=== PATIENT | male | born 1985 | race Caucasian/White ===

== ENCOUNTER 2020-09-30 21:43 | Emergency (ER) | payer BC, OTHER ==
[~2020-09-30] VITALS: Ht 167.6 cm; Wt 103.4 kg
[2020-09-30] MEDS ORDERED: CefTRIAXone 1000mg IM Kit (w/lidocaine diluent) IM ONE (22:30)
--- NOTE | 2020-09-30 22:33 | NUR ---
VASC CALLED BACK AT [address]
[2020-09-30] MEDS ORDERED: HYDROcodone/acetaminophen 5mg/325mg tablet PO ONE (22:50)
[2020-09-30 23:17] LABS: BASOPHILS # (AUTO) 0.1 X10'3 (0-0.2); BASOPHILS % (AUTO) 0.9 % (0-1); EOSINOPHILS # (AUTO) 0.3 X10'3 (0-0.9); EOSINOPHILS % (AUTO) 2.5 % (0-6); HEMATOCRIT 42.4 % (42.0-52.0); HEMOGLOBIN 14.5 g/dl (14.0-17.9); LYMPHOCYTES # (AUTO) 1.9 X10'3 (1.1-4.8); LYMPHOCYTES % (AUTO) 17.1 % (21-51); MEAN CORPUSCULAR HEMOGLOBIN 30.2 PG (27.0-31.0); MEAN CORPUSCULAR HGB CONC 34.2 g/dL (33.0-36.5); MEAN CORPUSCULAR VOLUME 88.5 FL (78-98); MEAN PLATELET VOLUME 8.5 FL (7.4-10.4); MONOCYTES # (AUTO) 0.9 X10'3 (0-0.9); MONOCYTES % (AUTO) 7.9 % (2-12); NEUTROPHILS # (AUTO) 8.1 X10'3 (1.8-7.7); NEUTROPHILS % (AUTO) 71.6 % (42-75); PLATELET COUNT 254 X10'3 (140-440); RED BLOOD COUNT 4.79 X10'6 (4.70-6.10); RED CELL DISTRIBUTION WIDTH 13.6 % (11.5-14.5); WHITE BLOOD COUNT 11.3 X10'3 (4.5-11.0)
[2020-09-30 23:19] LABS: ALANINE AMINOTRANSFERASE 33 U/L (12-78); ALBUMIN 3.6 G/DL (3.4-5.0); ALBUMIN/GLOBULIN RATIO 1.1 (1.1-1.5); ALKALINE PHOSPHATASE 93 IU/L (46-116); ANION GAP 7 (8-16); ASPARTATE AMINO TRANSFERASE 14 U/L (10-37); BILIRUBIN,TOTAL 0.2 MG/DL (0.1-1.0); BLOOD UREA NITROGEN 19 MG/DL (7-18); BUN/CREATININE RATIO 15.6 (5.4-32.0); CALCIUM 8.6 MG/DL (8.5-10.1); CHLORIDE 107 MMOL/L (99-107); CREATININE 1.22 MG/DL (0.60-1.10); GLUCOSE 123 MG/DL (70-104); POTASSIUM 3.9 MMOL/L (3.5-5.1); SODIUM 141 MMOL/L (135-145); TOTAL CARBON DIOXIDE 26.7 MMOL/L (24-32); eGFR 67 ML/MIN
[2020-09-30] MEDS ORDERED: HYDR-3965 PO (23:48)
[2020-09-30] MEDS ORDERED: RIVA15TA PO (23:48)
[2020-09-30] MEDS ORDERED: CEPH500C5 PO (23:48)
[2020-09-30] MEDS ORDERED: enoxaparin 100mg/ml syringe SUBCUT ONE (23:55)
[2020-10-01 00:09] VITALS: BP 148/72
== END 2020-10-01 00:11 | disposition home or self-care (01) ==
LOC: ER 21:43
DX: I82.431 Acute embolism and thrombosis of right popliteal vein (principal); L03.115 Cellulitis of right lower limb; S81.011D Laceration without foreign body, right knee, subsequent encounter; Z79.2 Long term (current) use of antibiotics; Z79.899 Other long term (current) drug therapy; X58.XXXD Exposure to other specified factors, subsequent encounter
CPT/HCPCS: 36415; 80053; 84145; 85025; 93971; 96372; 99284; J0696; J1650

== ENCOUNTER 2020-10-30 21:36 | Emergency (ER) | payer OTHER ==
[~2020-10-30] VITALS: Ht 167.6 cm; Wt 102.3 kg
[~2020-10-30 21:36] MED LIST: RIVA15TA PO
[2020-10-30 22:49] VITALS: BP 146/76
--- NOTE | 2020-10-30 23:11 | NUR ---
VAS at bedside doing exam
[2020-10-30] MEDS ORDERED: HYDR-3965 PO (23:25)
== END 2020-10-31 01:07 | disposition home or self-care (01) ==
LOC: ER 21:36
DX: I80.02 Phlebitis and thrombophlebitis of superficial vessels of left lower extremity (principal); M79.652 Pain in left thigh; R06.02 Shortness of breath; Z86.718 Personal history of other venous thrombosis and embolism; Z79.899 Other long term (current) drug therapy
CPT/HCPCS: 93971; 99284

== ENCOUNTER 2020-12-08 01:48 | Observation (INO) | payer OTHER ==
[~2020-12-08] VITALS: Ht 167.6 cm; Wt 104.5 kg
[2020-12-08 02:34] LABS: BASOPHILS # (AUTO) 0.2 X10'3 (0-0.2); BASOPHILS % (AUTO) 1.4 % (0-1); EOSINOPHILS # (AUTO) 0.6 X10'3 (0-0.9); HEMOGLOBIN 15.3 g/dl (14.0-17.9); LYMPHOCYTES # (AUTO) 3.2 X10'3 (1.1-4.8); LYMPHOCYTES % (AUTO) 28.8 % (21-51); MEAN CORPUSCULAR HEMOGLOBIN 29.6 PG (27.0-31.0); MEAN CORPUSCULAR HGB CONC 34.9 g/dL (33.0-36.5); MEAN CORPUSCULAR VOLUME 84.7 FL (78-98); MEAN PLATELET VOLUME 8.3 FL (7.4-10.4); MONOCYTES % (AUTO) 9.3 % (2-12); NEUTROPHILS # (AUTO) 6.2 X10'3 (1.8-7.7); NEUTROPHILS % (AUTO) 55.5 % (42-75); PLATELET COUNT 311 X10'3 (140-440); RED BLOOD COUNT 5.19 X10'6 (4.70-6.10); RED CELL DISTRIBUTION WIDTH 14.1 % (11.5-14.5); WHITE BLOOD COUNT 11.1 X10'3 (4.5-11.0)
[2020-12-08 02:36] LABS: ALANINE AMINOTRANSFERASE 33 U/L (12-78); ALBUMIN 4.2 G/DL (3.4-5.0); ALBUMIN/GLOBULIN RATIO 1.2 (1.1-1.5); ALKALINE PHOSPHATASE 90 IU/L (46-116); ANION GAP 13 (8-16); ASPARTATE AMINO TRANSFERASE 15 U/L (10-37); BILIRUBIN,TOTAL 0.3 MG/DL (0.1-1.0); BLOOD UREA NITROGEN 22 MG/DL (7-18); BUN/CREATININE RATIO 20.8 (5.4-32.0); CHLORIDE 104 MMOL/L (99-107); CREATININE 1.06 MG/DL (0.60-1.10); GLUCOSE 98 MG/DL (70-104); POTASSIUM 3.2 MMOL/L (3.5-5.1); SODIUM 141 MMOL/L (135-145); TOTAL CARBON DIOXIDE 24.2 MMOL/L (24-32); TOTAL PROTEIN 7.6 G/DL (6.4-8.2); eGFR 79 ML/MIN
[2020-12-08] MEDS ORDERED: aspirin 325mg tablet, delayed-release (Ecotrin) PO ONE (03:20)
[2020-12-08] MEDS ORDERED: normal saline 1000ML IV soln IVB ONE (03:25)
[2020-12-08] MEDS ORDERED: iohexol 350MG/ML 100ml bottle IV ONE (03:27)
[2020-12-08] MEDS ORDERED: ondansetron/PF 4mg/2ml inj IV PRN (03:35)
[2020-12-08] MEDS ORDERED: magnesium hydroxide 30ml (MOM) UD suspension PO PRN (03:35)
[2020-12-08] MEDS ORDERED: acetaminophen 325mg tablet PO PRN ×2 (03:35)
[2020-12-08] MEDS ORDERED: mag hydrox/Alum hydrox/simeth 30ml oral suspension PO PRN (03:35)
[2020-12-08] MEDS ORDERED: HYDROcodone/acetaminophen 5mg/325mg tablet PO PRN (03:35)
[2020-12-08] MEDS ORDERED: morphine 2 MG/ML inj. syringe IV PRN ×2 (03:35)
[2020-12-08] MEDS ORDERED: enoxaparin 80mg/0.8ml syringe SUBCUT ONE (03:35)
[2020-12-08 04:11] LABS: C-REACTIVE PROTEIN 0.27 MG/DL (0.0-0.5)
[2020-12-08 04:48] LABS: PARTIAL THROMBOPLASTIN TIME 32 SECONDS (22-32)
[2020-12-08 04:51] LABS: D-DIMER < 0.19 MG/L FEU (0-0.50)
[2020-12-08] MEDS ORDERED: regadenoson 0.4mg/5ml syringe IV PRN ×2 (08:00→13:40)
[2020-12-08] MEDS: HYDROcodone/acetaminophen 10/325mg tab PO PRN ×3 (10:46→20:00)
[2020-12-08] MEDS ORDERED: RIVA20TA PO (11:51)
[2020-12-08] MEDS ORDERED: nitroGLYCERIN 0.4mg SUBLingual tab SL PRN (12:15)
[2020-12-08] MEDS ORDERED: metoprolol tartrate 1mg/ml inj IV PRN (12:15)
[2020-12-08] MEDS ORDERED: aminophylline 250mg/10ml inj. IV PRN (12:15)
[2020-12-08] MEDS ORDERED: regadenoson 0.4mg/5ml syringe IV ONE (12:15)
--- NOTE | 2020-12-08 12:44 | NUR ---
VASCULAR IN ROOM
--- NOTE | 2020-12-08 13:39 | NUR ---
JAREN SCAN ORDERED, WAS TOLD WILL DO JAREN SCAN IN AM, RE-TIMMED JAREN SCAN IN COMPUTER FOR TOMORROW.
--- NOTE | 2020-12-08 15:25 | NUR ---
echo at bedside
--- NOTE | 2020-12-08 16:30 | NUR ---
attempted to call report, rn not assigned yet. Will call back.
--- NOTE | 2020-12-08 16:50 | NUR ---
Report received from ED RNJuan C
[2020-12-08 18:00] VITALS: BP 161/91
--- NOTE | 2020-12-08 18:05 | NUR ---
Problems reprioritized. Patient report given, questions answered & plan of care reviewed with BREA Phipps.
[2020-12-08] MEDS ORDERED: potassium Cl 40MEQ/1/2NS 520ml 520 ML IV PRN (21:05)
[2020-12-08] MEDS ORDERED: potassium Cl 20 mEq SR tablet PO PRN ×2 (21:05)
[2020-12-08] MEDS ORDERED: magnesium Cl slow-release 64mg tablet PO PRN (21:05)
[2020-12-08] MEDS ORDERED: magnesium 4gm in 100ml NS 100 ML IV PRN (21:05)
[2020-12-08 22:00] VITALS: BP 139/91
[2020-12-09] VITALS (10 sets, daily range): BP systolic 125–148; BP diastolic 70–98
[2020-12-09 06:23] LABS: BASOPHILS # (AUTO) 0.1 X10'3 (0-0.2); BASOPHILS % (AUTO) 1.1 % (0-1); EOSINOPHILS # (AUTO) 0.6 X10'3 (0-0.9); EOSINOPHILS % (AUTO) 6.3 % (0-6); HEMATOCRIT 41.9 % (42.0-52.0); HEMOGLOBIN 14.6 g/dl (14.0-17.9); LYMPHOCYTES # (AUTO) 2.6 X10'3 (1.1-4.8); LYMPHOCYTES % (AUTO) 25.3 % (21-51); MEAN CORPUSCULAR HEMOGLOBIN 29.6 PG (27.0-31.0); MEAN CORPUSCULAR HGB CONC 34.9 g/dL (33.0-36.5); MEAN CORPUSCULAR VOLUME 84.8 FL (78-98); MEAN PLATELET VOLUME 8.2 FL (7.4-10.4); MONOCYTES # (AUTO) 0.9 X10'3 (0-0.9); MONOCYTES % (AUTO) 8.7 % (2-12); NEUTROPHILS % (AUTO) 58.6 % (42-75); PLATELET COUNT 268 X10'3 (140-440); RED BLOOD COUNT 4.95 X10'6 (4.70-6.10); WHITE BLOOD COUNT 10.2 X10'3 (4.5-11.0)
--- NOTE | 2020-12-09 06:30 | NUR ---
Patient in room PCU 3027. I have received report from Desire GUIDRY and had the opportunity to ask questions and assume patient care.
[2020-12-09 06:44] LABS: ALBUMIN 3.6 G/DL (3.4-5.0); ANION GAP 11 (8-16); BLOOD UREA NITROGEN 19 MG/DL (7-18); BUN/CREATININE RATIO 19.6 (5.4-32.0); CALCIUM 8.8 MG/DL (8.5-10.1); CHLORIDE 106 MMOL/L (99-107); CREATININE 0.97 MG/DL (0.60-1.10); GLUCOSE 100 MG/DL (70-104); POTASSIUM 3.7 MMOL/L (3.5-5.1); SODIUM 142 MMOL/L (135-145); TOTAL CARBON DIOXIDE 25.3 MMOL/L (24-32); eGFR 88 ML/MIN
--- NOTE | 2020-12-09 06:46 | NUR ---
Problems reprioritized. Patient report given, questions answered & plan of care reviewed with BREA Killian.
[2020-12-09] MEDS ORDERED: regadenoson 0.4mg/5ml syringe IV PRN (08:00)
[2020-12-09] MEDS ORDERED: K and/or MAG REPLACEMENT MC SCH (08:00)
[2020-12-09] MEDS: HYDROcodone/acetaminophen 10/325mg tab PO PRN ×2 (12:43→17:07)
[2020-12-09] MEDS ORDERED: rivaroxaban 20mg tablet PO SCH (17:00)
== END 2020-12-09 17:34 | disposition home or self-care (01) ==
LOC: ER 01:48 → ED HOLD 03:33 → PCU 3S 17:06
PROVIDERS: ADMIT Internal Medicine; ATTEND Family Medicine
DX: R07.89 Other chest pain (principal); M79.602 Pain in left arm; I82.403 Acute embolism and thrombosis of unspecified deep veins of lower extremity, bilateral; E87.6 Hypokalemia; I21.4 Non-ST elevation (NSTEMI) myocardial infarction; Z79.01 Long term (current) use of anticoagulants; Z79.899 Other long term (current) drug therapy
CPT/HCPCS: 36415; 71045; 71275; 78452; 80048; 80053; 83880; 84145; 84484; 85025; 85379; 85610; 85730; 86140; 87081; 93005; 93017; 93306; 93971; 96361; 96372; 96374; 99285; A9500; G0378; J2270; J2785; J7030; Q9967; J1650

== ENCOUNTER 2022-02-08 22:50 | Inpatient (IN) | payer OTHER ==
[~2022-02-08] VITALS: Ht 167.6 cm; Wt 102.0 kg
[~2022-02-08 22:50] MED LIST changes: -RIVA15TA PO; +RIVA20TA PO
--- NOTE | 2022-02-08 23:34 | NUR ---
Pt to room 11. open cellulitis to left lower leg. Pt states it started a week ago, has been on po antibiotics x 1 week. Bed in lowest position, wheels locked, family at bedside. Call fletcher in reach.
[2022-02-08] MEDS ORDERED: normal saline 1000ml 1,000 ML IV ONE (23:55)
[2022-02-09 00:35] LABS: ALANINE AMINOTRANSFERASE 55 U/L (12-78); ALBUMIN 3.8 G/DL (3.4-5.0); ALBUMIN/GLOBULIN RATIO 1.2 (1.1-1.5); ALKALINE PHOSPHATASE 67 IU/L (46-116); ANION GAP 17 (8-16); ASPARTATE AMINO TRANSFERASE 21 U/L (10-37); BILIRUBIN,TOTAL 0.2 MG/DL (0.1-1.0); BLOOD UREA NITROGEN 12 MG/DL (7-18); BUN/CREATININE RATIO 9.8 (5.4-32.0); CALCIUM 7.9 MG/DL (8.5-10.1); CHLORIDE 112 MMOL/L (99-107); CREATINE KINASE 131 U/L (39-308); CREATININE 1.23 MG/DL (0.60-1.10); GLUCOSE 68 MG/DL (70-104); POTASSIUM 3.7 MMOL/L (3.5-5.1); SODIUM 149 MMOL/L (135-145); TOTAL CARBON DIOXIDE 20.4 MMOL/L (24-32); TOTAL PROTEIN 7.1 G/DL (6.4-8.2); eGFR 66 ML/MIN
[2022-02-09] MEDS ORDERED: fentaNYL/PF 50MCG/1 ML 2ML syringe IV ONE (00:45)
[2022-02-09 00:49] LABS: BASOPHILS # (AUTO) 0.1 X10'3 (0-0.2); BASOPHILS % (AUTO) 0.7 % (0-1); EOSINOPHILS # (AUTO) 0.1 X10'3 (0-0.9); EOSINOPHILS % (AUTO) 1.9 % (0-6); HEMATOCRIT 43.9 % (42.0-52.0); LYMPHOCYTES # (AUTO) 0.5 X10'3 (1.1-4.8); LYMPHOCYTES % (AUTO) 7.5 % (21-51); MEAN CORPUSCULAR HEMOGLOBIN 29.4 PG (27.0-31.0); MEAN CORPUSCULAR HGB CONC 34.2 g/dL (33.0-36.5); MEAN PLATELET VOLUME 8.3 FL (7.4-10.4); MONOCYTES # (AUTO) 1.4 X10'3 (0-0.9); MONOCYTES % (AUTO) 19.9 % (2-12); NEUTROPHILS # (AUTO) 5.1 X10'3 (1.8-7.7); PLATELET COUNT 256 X10'3 (140-440); RED CELL DISTRIBUTION WIDTH 14.6 % (11.5-14.5); WHITE BLOOD COUNT 7.3 X10'3 (4.5-11.0)
[2022-02-09] MEDS ORDERED: ondansetron/PF 4mg/2ml inj IV ONE (01:10)
--- NOTE | 2022-02-09 01:18 | NUR ---
20G PIV started right a/c 2 attempts. Pt andrea well remained pink, family at bedside. Nasal swabs collected, labeled and walked to lab. Pt provided with warm blankets for comfort.
[2022-02-09 01:23] LABS: TOTAL CELLS COUNTED 100
[2022-02-09 01:24] LABS: PLATELET ESTIMATE NORMAL
[2022-02-09] MEDS ORDERED: epiNEPHrine 1 mg/ml inj IM STA (02:10)
--- NOTE | 2022-02-09 02:30 | NUR ---
Pt medicated as ordered, right deltoid. Pt andrea. well, remained pink, injection site c/d/i s complication. Family at bedside. PIV site c/d/i s complication.
--- NOTE | 2022-02-09 04:16 | NUR ---
No change in pt sx after epi IM given. Pt pink, alert, no acute distress. PIV site c/d/i s complication. UA collected, labeled and walked to lab. Family at bedside.
[2022-02-09] MEDS ORDERED: TRAM50TA2 PO (04:18)
[2022-02-09] MEDS ORDERED: SULF1TAB45 PO (04:18)
[2022-02-09] MEDS ORDERED: APIX2.5T PO (04:19)
[2022-02-09 04:32] LABS: CLARITY,URINE CLEAR (Clear); COLOR,URINE YELLOW (Yellow); GLUCOSE, URINE NEGATIVE (Neg); KETONES,URINE NEGATIVE (Neg); LEUKOCYTE ESTERASE ,URINE NEGATIVE (Neg); NITRITES, URINE NEGATIVE (Neg); OCCULT BLOOD,URINE TRACE-INTACT (Neg); PROTEIN,URINE NEGATIVE (Neg); UROBILINOGEN,URINE 0.2 E.U/dL (0.2-1.0)
[2022-02-09 04:33] LABS: UA COLLECTION TYPE CLN CATCH MIDSTREAM
[2022-02-09] MEDS ORDERED: ringers solution, lacted 1,000 ML IV ONE (04:45)
[2022-02-09 04:46] LABS: BACTERIA,URINE NONE SEEN /HPF (Neg); MUCUS STRANDS NONE SEEN /LPF (Neg); RBC,URINE 0-2 /HPF (0-2); SQUAMOUS EPITHELIAL CELL,UR NONE SEEN /LPF (FEW); WBC,URINE 0-4 /HPF (0-4)
[2022-02-09] MEDS ORDERED: morphine 4 MG/ML inj SYRINge IV ONE (05:25)
--- NOTE | 2022-02-09 05:54 | NUR ---
Pt pink, alert, no acute/resp distress. PIV site c/d/i s complication or adverse reaction. Pt supine, moves self PRN for comfort. Bed in lowest position, wheels locked, rail 2/2 up, call fletcher in reach. Handoff report to dayshift RN
[2022-02-09] MEDS ORDERED: cefTRIAXone 1g/NS 100ml IVPB 100 ML IV ONE (06:45)
[2022-02-09] MEDS ORDERED: naloxone 0.4 mg/ml inj IV PRN (07:00)
[2022-02-09] MEDS ORDERED: acetaminophen 325mg tablet PO PRN ×2 (07:00→18:40)
[2022-02-09] MEDS ORDERED: docusate sod 100mg capsule PO ONE (07:00)
[2022-02-09] MEDS: oxyCODONE IR 5mg (immed. release) tablet PO PRN ×4 (07:35→20:19)
[2022-02-09] MEDS ORDERED: heparin 10,000 units/1 ML INJ IV PRN (09:35)
[2022-02-09] MEDS ORDERED: heparin 25,000 UNIT/250ml bag 250 ML IV SCH (09:35)
--- NOTE | 2022-02-09 12:30 | NUR ---
Patient feels hot and blotchy, temp checked 99F. MD assessed patient and aware. per MD okay to eat.
--- NOTE | 2022-02-09 15:34 | NUR ---
RELIEVING RN FOR BREAK, PT IS RESTING QUIETLY ON BED, GAVE PT SNACK TO EAT, IKE WELL, NO N/V
--- NOTE | 2022-02-09 16:10 | NUR ---
HEPARIN INFUSION STOPPED BY VERBAL ORDER OF DR. WALLIS.
[2022-02-09] MEDS ORDERED: iohexol 300mg/ml 100ml inj. ONE (16:32)
[2022-02-09] MEDS ORDERED: piperacillin/tazo 3.375gm/50ml 50 ML IV ONE (17:00)
[2022-02-09] MEDS ORDERED: vancomycin/NS 1 GM ADD-VANTAGE 250 ML IV ONE (17:00)
[2022-02-09] MEDS: morphine 4 MG/ML inj SYRINge IV PRN ×2 (17:24→18:56)
[2022-02-09] MEDS ORDERED: mag hydrox/Alum hydrox/simeth 30ml oral suspension PO PRN (18:40)
[2022-02-09] MEDS ORDERED: magnesium hydroxide 30ml (MOM) UD suspension PO PRN (18:40)
[2022-02-09] MEDS ORDERED: ondansetron/PF 4mg/2ml inj IV PRN (18:40)
[2022-02-09] MEDS: normal saline 1000ml 1,000 ML IV SCH ×2 (18:55→20:45)
[2022-02-09] MEDS: docusate sod 100mg capsule PO SCH (20:18)
[2022-02-09] MEDS: clindamycin 600mg/D5W 50ml 50 ML IV SCH (20:45)
[2022-02-09 21:00] VITALS: BP 135/76
--- NOTE | 2022-02-09 21:42 | NUR ---
Pt admitted to floor via ED, ambulatory in room. VSS. reddness/warmth noted to left lower extremity and right/mid lower abd. generalized reddness also noted to right flank area and neck, pt states improvement since ED. MD Rizvi paged to verify hep gtt d/c. okay to give oral eliquis. pt denies any needs at this time. no acute distress noted.
[2022-02-09] MEDS: apixaban 2.5mg tablet PO SCH (21:49)
[2022-02-09 22:00] VITALS: BP 135/72
[2022-02-09] MEDS: ceFAZolin/D5W- 1GM premix 50 ML IV SCH (23:32)
[2022-02-10] MEDS: oxyCODONE IR 5mg (immed. release) tablet PO PRN ×5 (00:52→18:24)
[2022-02-10] MEDS: clindamycin 600mg/D5W 50ml 50 ML IV SCH ×4 (01:49→19:16)
[2022-02-10 02:00] VITALS: BP 138/81
[2022-02-10 05:56] LABS: BASOPHILS % (AUTO) 0.7 % (0-1); EOSINOPHILS # (AUTO) 0.2 X10'3 (0-0.9); EOSINOPHILS % (AUTO) 4.6 % (0-6); HEMATOCRIT 41.5 % (42.0-52.0); HEMOGLOBIN 13.8 g/dl (14.0-17.9); LYMPHOCYTES # (AUTO) 1.2 X10'3 (1.1-4.8); LYMPHOCYTES % (AUTO) 25.2 % (21-51); MEAN CORPUSCULAR HEMOGLOBIN 28.4 PG (27.0-31.0); MEAN CORPUSCULAR HGB CONC 33.3 g/dL (33.0-36.5); MEAN CORPUSCULAR VOLUME 85.2 FL (78-98); MEAN PLATELET VOLUME 8.6 FL (7.4-10.4); MONOCYTES % (AUTO) 19.9 % (2-12); NEUTROPHILS # (AUTO) 2.4 X10'3 (1.8-7.7); NEUTROPHILS % (AUTO) 49.6 % (42-75); PLATELET COUNT 241 X10'3 (140-440); RED BLOOD COUNT 4.87 X10'6 (4.70-6.10); RED CELL DISTRIBUTION WIDTH 14.4 % (11.5-14.5); WHITE BLOOD COUNT 4.9 X10'3 (4.5-11.0)
[2022-02-10 06:00] VITALS: BP 128/74
[2022-02-10 06:03] LABS: ALANINE AMINOTRANSFERASE 47 U/L (12-78); ALBUMIN 3.5 G/DL (3.4-5.0); ALBUMIN/GLOBULIN RATIO 1.2 (1.1-1.5); ALKALINE PHOSPHATASE 56 IU/L (46-116); ANION GAP 12 (8-16); ASPARTATE AMINO TRANSFERASE 26 U/L (10-37); BILIRUBIN,TOTAL 0.2 MG/DL (0.1-1.0); BLOOD UREA NITROGEN 6 MG/DL (7-18); BUN/CREATININE RATIO 6.2 (5.4-32.0); CALCIUM 7.9 MG/DL (8.5-10.1); CHLORIDE 104 MMOL/L (99-107); CREATININE 0.97 MG/DL (0.60-1.10); GLUCOSE 102 MG/DL (70-104); POTASSIUM 3.6 MMOL/L (3.5-5.1); SODIUM 140 MMOL/L (135-145); TOTAL CARBON DIOXIDE 24.1 MMOL/L (24-32); TOTAL PROTEIN 6.4 G/DL (6.4-8.2); eGFR 87 ML/MIN
[2022-02-10] MEDS ORDERED: CefTRIAXone 2gm/D5W 50ml BAG 50 ML IV SCH (08:00)
[2022-02-10] MEDS: normal saline 1000ml 1,000 ML IV SCH ×2 (08:46→21:33)
[2022-02-10] MEDS: ceFAZolin/D5W- 1GM premix 50 ML IV SCH ×2 (08:56→17:01)
[2022-02-10] MEDS: apixaban 2.5mg tablet PO SCH ×2 (08:56→19:21)
[2022-02-10] MEDS: docusate sod 100mg capsule PO SCH ×2 (08:56→19:21)
[2022-02-10 11:00] VITALS: BP 127/69
--- NOTE | 2022-02-10 14:25 | NUR ---
WOUND INFECTION EDUCATION PROVIDED BY WOUND CARE 1. Patient instructed to call their primary doctor, or go the ED immediately if any of the following symptoms occur: * Increased pain in wound * Increase in drainage from the wound * Redness in the skin surrounding the wound * Warmth in the skin surrounding the wound * Bleeding from the wound * Temperature of 101 or greater 2. If any of these occur while in the hospital tell a nurse immediately. PRESSURE ULCER EDUCATION: DEFINITION: A pressure ulcer is an area of skin that breaks down when you stay in one position too long. The constant pressure against the skin reduces the blood flow to that area and the affected tissue dies. CAUSES: "Being bedridden or in a wheelchair "Fragile skin "Having a chronic condition, such as diabetes or vascular disease "Inability to move certain parts of your body without assistance "Older age "Incontinence of urine or stool SYMPTOMS: "A reddened area that DOES NOT turn white when pressed on - this can be the beginning of a pressure ulcer "A blister, deep sore or a crater - these can be advanced pressure ulcers FIRST AID: "Relieve the pressure on this area "Keep the area clean and dry "Call your primary doctor if you see any of the above symptoms "DO NOT massage the area "DO NOT use a donut shaped or ring shaped pillow- these actually interfere with the blood flow and cause complications PREVENTION: "Check for pressure ulcers everyday "Change position at least every two hours to relieve pressure "Use items that help relieve pressure- pillows, sheepskin, foam padding, and powders. "Keep skin clean and dry "Eat healthy well balanced meals "Exercise daily IF YOU SEE ANY OF THESE SYMPTOMS WHILE IN THE HOSPITAL - TELL YOUR NURSE IMMEDIATELY. IF YOU SEE ANY OF THESE SYMPTOMS WHILE AT HOME OR HAVE ANY QUESTIONS OR CONCERNS ABOUT PRESSURE ULCERS - CALL YOUR PRIMARY DOCTOR IMMEDIATELY. Addendum: 02/10/22 at 1425 by Ivana Daley LVN Amended: Links added.
[2022-02-10 18:38] VITALS: BP 119/68
[2022-02-10] MEDS ORDERED: benzonatate 100mg capsule PO PRN (21:20)
[2022-02-10 22:00] VITALS: BP 133/71
[2022-02-11] MEDS: ceFAZolin/D5W- 1GM premix 50 ML IV SCH ×4 (00:21→23:57)
[2022-02-11] MEDS: clindamycin 600mg/D5W 50ml 50 ML IV SCH ×4 (01:17→20:07)
[2022-02-11] MEDS: oxyCODONE IR 5mg (immed. release) tablet PO PRN ×5 (01:22→22:29)
[2022-02-11 02:30] VITALS: BP 129/71
[2022-02-11 06:00] VITALS: BP 119/78
[2022-02-11 07:03] LABS: BASOPHILS % (AUTO) 0.8 % (0-1); EOSINOPHILS # (AUTO) 0.9 X10'3 (0-0.9); HEMATOCRIT 41.3 % (42.0-52.0); LYMPHOCYTES # (AUTO) 1.5 X10'3 (1.1-4.8); MEAN CORPUSCULAR HGB CONC 33.8 g/dL (33.0-36.5); MEAN CORPUSCULAR VOLUME 85.7 FL (78-98); MEAN PLATELET VOLUME 8.4 FL (7.4-10.4); MONOCYTES # (AUTO) 0.6 X10'3 (0-0.9); MONOCYTES % (AUTO) 12.9 % (2-12); NEUTROPHILS # (AUTO) 1.8 X10'3 (1.8-7.7); NEUTROPHILS % (AUTO) 37.3 % (42-75); PLATELET COUNT 225 X10'3 (140-440); RED BLOOD COUNT 4.82 X10'6 (4.70-6.10); RED CELL DISTRIBUTION WIDTH 14.2 % (11.5-14.5); WHITE BLOOD COUNT 4.9 X10'3 (4.5-11.0)
[2022-02-11 07:34] LABS: ALANINE AMINOTRANSFERASE 42 U/L (12-78); ALBUMIN 3.1 G/DL (3.4-5.0); ALKALINE PHOSPHATASE 71 IU/L (46-116); ANION GAP 10 (8-16); ASPARTATE AMINO TRANSFERASE 23 U/L (10-37); BILIRUBIN,TOTAL 0.1 MG/DL (0.1-1.0); BLOOD UREA NITROGEN 10 MG/DL (7-18); BUN/CREATININE RATIO 9.9 (5.4-32.0); CALCIUM 7.8 MG/DL (8.5-10.1); CHLORIDE 110 MMOL/L (99-107); CREATININE 1.01 MG/DL (0.60-1.10); GLUCOSE 101 MG/DL (70-104); POTASSIUM 3.5 MMOL/L (3.5-5.1); SODIUM 145 MMOL/L (135-145); TOTAL CARBON DIOXIDE 25.2 MMOL/L (24-32); TOTAL PROTEIN 6.2 G/DL (6.4-8.2); eGFR 83 ML/MIN
[2022-02-11] MEDS: docusate sod 100mg capsule PO SCH ×4 (08:00→20:07)
[2022-02-11] MEDS: apixaban 2.5mg tablet PO SCH ×2 (08:55→20:07)
[2022-02-11] MEDS: normal saline 1000ml 1,000 ML IV SCH ×2 (10:40→21:33)
[2022-02-11 11:00] VITALS: BP 131/84
[2022-02-11 15:00] VITALS: BP 134/64
[2022-02-11 18:00] VITALS: BP 165/100
[2022-02-11 22:00] VITALS: BP 141/85
[2022-02-12] MEDS: diphenhydrAMINE 25mg capsule PO PRN ×4 (00:30→22:05)
[2022-02-12 02:00] VITALS: BP 141/74
[2022-02-12] MEDS: clindamycin 600mg/D5W 50ml 50 ML IV SCH ×2 (02:34→09:00)
[2022-02-12] MEDS: oxyCODONE IR 5mg (immed. release) tablet PO PRN ×4 (02:34→21:02)
[2022-02-12 06:00] VITALS: BP 136/76
[2022-02-12 06:38] LABS: BASOPHILS % (AUTO) 0.6 % (0-1); EOSINOPHILS # (AUTO) 0.9 X10'3 (0-0.9); EOSINOPHILS % (AUTO) 11.8 % (0-6); HEMATOCRIT 41.5 % (42.0-52.0); HEMOGLOBIN 14.4 g/dl (14.0-17.9); LYMPHOCYTES # (AUTO) 1.5 X10'3 (1.1-4.8); LYMPHOCYTES % (AUTO) 20.1 % (21-51); MEAN CORPUSCULAR HEMOGLOBIN 29.3 PG (27.0-31.0); MEAN CORPUSCULAR HGB CONC 34.7 g/dL (33.0-36.5); MEAN CORPUSCULAR VOLUME 84.7 FL (78-98); MEAN PLATELET VOLUME 8.1 FL (7.4-10.4); MONOCYTES # (AUTO) 0.7 X10'3 (0-0.9); MONOCYTES % (AUTO) 9.4 % (2-12); NEUTROPHILS # (AUTO) 4.3 X10'3 (1.8-7.7); NEUTROPHILS % (AUTO) 58.1 % (42-75); PLATELET COUNT 228 X10'3 (140-440); RED CELL DISTRIBUTION WIDTH 14.2 % (11.5-14.5); WHITE BLOOD COUNT 7.5 X10'3 (4.5-11.0)
[2022-02-12 06:52] LABS: ALANINE AMINOTRANSFERASE 42 U/L (12-78); ALBUMIN 3.3 G/DL (3.4-5.0); ALBUMIN/GLOBULIN RATIO 1.1 (1.1-1.5); ALKALINE PHOSPHATASE 60 IU/L (46-116); ANION GAP 10 (8-16); ASPARTATE AMINO TRANSFERASE 25 U/L (10-37); BILIRUBIN,TOTAL 0.3 MG/DL (0.1-1.0); BLOOD UREA NITROGEN 7 MG/DL (7-18); BUN/CREATININE RATIO 7.7 (5.4-32.0); CALCIUM 7.7 MG/DL (8.5-10.1); CHLORIDE 105 MMOL/L (99-107); CREATININE 0.91 MG/DL (0.60-1.10); GLUCOSE 95 MG/DL (70-104); POTASSIUM 3.4 MMOL/L (3.5-5.1); SODIUM 140 MMOL/L (135-145); TOTAL CARBON DIOXIDE 25.3 MMOL/L (24-32); TOTAL PROTEIN 6.4 G/DL (6.4-8.2); eGFR > 90 ML/MIN
[2022-02-12] MEDS: docusate sod 100mg capsule PO SCH ×2 (08:00→20:00)
[2022-02-12] MEDS: apixaban 2.5mg tablet PO SCH ×2 (08:41→21:01)
[2022-02-12] MEDS: ceFAZolin/D5W- 1GM premix 50 ML IV SCH (08:42)
[2022-02-12] MEDS: normal saline 1000ml 1,000 ML IV SCH ×3 (08:59→21:01)
[2022-02-12] MEDS ORDERED: linezolid 600mg tablet PO SCH (10:15)
--- NOTE | 2022-02-12 13:29 | NUR ---
WOUND INFECTION EDUCATION PROVIDED BY WOUND CARE 1. Patient instructed to call their primary doctor, or go the ED immediately if any of the following symptoms occur: * Increased pain in wound * Increase in drainage from the wound * Redness in the skin surrounding the wound * Warmth in the skin surrounding the wound * Bleeding from the wound * Temperature of 101 or greater 2. If any of these occur while in the hospital tell a nurse immediately. Addendum: 02/12/22 at 1330 by Ivana Daley LVN Amended: Links added.
--- NOTE | 2022-02-12 14:14 | NUR ---
Initial: Pt admitted w/ cellulitis to LLE and abdomen per EMR. Currently on Regular diet w/ mostly 100% intake of meals meeting nutrient needs at this time. LBM 02/11 receiving routine colace. Noted pt on zyvox, provided pt w/ written and verbal low tyramine diet ed w/ RD contact info. No nutrition intervention implemented at this time, will continue to monitor. Recs: 1. Continue Regular diet as tolerated 2. Bowel care per rx 3. Scaled wts Addendum: 02/12/22 at [address] Amended: Links added.
[2022-02-12 15:00] VITALS: BP 156/85
[2022-02-12] MEDS: linezolid 600mg tablet PO SCH ×2 (15:56→20:58)
[2022-02-12 18:30] VITALS: BP 142/80
--- NOTE | 2022-02-12 18:30 | NUR ---
Patient in room U 3011. I have received report from Sheryl Garcia RN and Luh and had the opportunity to ask questions and assume patient care. Addendum: 02/13/22 at 0149 by So Castro RN Amended: Links added.
[2022-02-12 22:30] VITALS: BP 141/79
[2022-02-13] MEDS: oxyCODONE IR 5mg (immed. release) tablet PO PRN ×3 (01:42→11:43)
[2022-02-13 02:44] VITALS: BP 129/76
--- NOTE | 2022-02-13 03:35 | NUR ---
awake talking on phone. no complaints Addendum: 02/13/22 at 0335 by So Castro RN Amended: Links added.
[2022-02-13] MEDS: diphenhydrAMINE 25mg capsule PO PRN ×2 (05:35→14:17)
[2022-02-13] MEDS: normal saline 1000ml 1,000 ML IV SCH (05:35)
[2022-02-13 06:17] LABS: BASOPHILS % (AUTO) 0.3 % (0-1); EOSINOPHILS # (AUTO) 0.9 X10'3 (0-0.9); EOSINOPHILS % (AUTO) 14.5 % (0-6); HEMATOCRIT 41.9 % (42.0-52.0); HEMOGLOBIN 14.4 g/dl (14.0-17.9); LYMPHOCYTES # (AUTO) 1.8 X10'3 (1.1-4.8); LYMPHOCYTES % (AUTO) 30.2 % (21-51); MEAN CORPUSCULAR HEMOGLOBIN 29.3 PG (27.0-31.0); MEAN CORPUSCULAR HGB CONC 34.3 g/dL (33.0-36.5); MEAN CORPUSCULAR VOLUME 85.5 FL (78-98); MEAN PLATELET VOLUME 8.2 FL (7.4-10.4); MONOCYTES # (AUTO) 0.8 X10'3 (0-0.9); MONOCYTES % (AUTO) 12.6 % (2-12); NEUTROPHILS # (AUTO) 2.6 X10'3 (1.8-7.7); NEUTROPHILS % (AUTO) 42.4 % (42-75); PLATELET COUNT 230 X10'3 (140-440); RED BLOOD COUNT 4.91 X10'6 (4.70-6.10); RED CELL DISTRIBUTION WIDTH 14.1 % (11.5-14.5)
[2022-02-13 06:37] LABS: ALANINE AMINOTRANSFERASE 70 U/L (12-78); ALBUMIN 3.3 G/DL (3.4-5.0); ALKALINE PHOSPHATASE 61 IU/L (46-116); ANION GAP 10 (8-16); ASPARTATE AMINO TRANSFERASE 48 U/L (10-37); BILIRUBIN,TOTAL 0.4 MG/DL (0.1-1.0); BLOOD UREA NITROGEN 7 MG/DL (7-18); BUN/CREATININE RATIO 8.2 (5.4-32.0); CALCIUM 7.9 MG/DL (8.5-10.1); CHLORIDE 106 MMOL/L (99-107); CREATININE 0.85 MG/DL (0.60-1.10); GLUCOSE 85 MG/DL (70-104); POTASSIUM 3.6 MMOL/L (3.5-5.1); SODIUM 141 MMOL/L (135-145); TOTAL CARBON DIOXIDE 25.2 MMOL/L (24-32); TOTAL PROTEIN 6.5 G/DL (6.4-8.2); eGFR > 90 ML/MIN
--- NOTE | 2022-02-13 06:43 | NUR ---
Problems reprioritized. Patient report given, questions answered & plan of care reviewed with RACHELE GUIDRY. Addendum: 02/13/22 at 0643 by So Castro RN Amended: Links added.
[2022-02-13 07:00] VITALS: BP 123/71
[2022-02-13] MEDS: linezolid 600mg tablet PO SCH (08:08)
[2022-02-13] MEDS: apixaban 2.5mg tablet PO SCH (08:09)
[2022-02-13] MEDS: docusate sod 100mg capsule PO SCH (08:09)
[2022-02-13 11:00] VITALS: BP 134/83
[2022-02-13] MEDS ORDERED: LINE600T12 PO (11:39)
== END 2022-02-13 16:48 | disposition home or self-care (01) | DRG 603 ==
LOC: ER 22:52 → ED HOLD 02-09 18:40 → EDBEDREQ 02-09 19:16 → PCU 3S 02-09 20:00
PROVIDERS: ADMIT Family Medicine; ATTEND Family Medicine
PROC: BQ2S1ZZ Computerized Tomography (CT Scan) of Left Lower Extremity using Low Osmolar Contrast (ICD-10-PCS; principal; 2022-02-09)
DX: L03.116 Cellulitis of left lower limb (principal); L03.311 Cellulitis of abdominal wall; M60.862 Other myositis, left lower leg; M72.9 Fibroblastic disorder, unspecified; R21 Rash and other nonspecific skin eruption; F17.220 Nicotine dependence, chewing tobacco, uncomplicated; J10.1 Influenza due to other identified influenza virus with other respiratory manifestations; Z20.822 Contact with and (suspected) exposure to COVID-19; T78.40XA Allergy, unspecified, initial encounter; X58.XXXA Exposure to other specified factors, initial encounter; Z86.718 Personal history of other venous thrombosis and embolism; Z79.01 Long term (current) use of anticoagulants; Z88.2 Allergy status to sulfonamides
CPT/HCPCS: 36415; 71045; 73701; 80053; 81001; 82550; 83605; 85007; 85025; 85610; 85651; 85730; 87040; 87502; 87503; 87635; 99285; C9803; G0378; J0171; J0690; J0696; J1644; J2270; J2405; J2543; J3010; J3370; J3490; J7030; J7120; Q0163; Q9967